=== PATIENT | female | born 1995 | race Caucasian/White ===

== ENCOUNTER → 2017-09-28 | Outpatient (REF) | payer OTHER ==
[2017-09-28 15:02] LABS: ALBUMIN 2.9 GM/DL (3.2-5.2); ALBUMIN/GLOBULIN RATIO 0.83 (1.00-1.93); ALKALINE PHOSPHATASE 61 U/L (45-117); ALT/SGPT 21 U/L (12-78); AST/SGOT 22 U/L (7-37); BILIRUBIN,DIRECT < 0.1 MG/DL (0.0-0.2); BILIRUBIN,TOTAL 0.2 MG/DL (0.2-1.0); TOTAL PROTEIN 6.4 GM/DL (6.4-8.2)
[2017-10-02 00:09] LABS: HEPATITIS A IgG TOTAL Negative (Negative); HEPATITIS C QUANTITATION HCV Not Detected IU/mL (.)
== END ==
LOC: M SFHCPLAZ 09:44
DX: R76.8 Other specified abnormal immunological findings in serum (principal)

== ENCOUNTER 2018-01-10 15:13 | Inpatient (IN) | payer OTHER ==
[2018-01-10 17:04] LABS: HEMATOCRIT 37.3 % (36.0-47.0); HEMOGLOBIN 12.9 g/dl (12.0-15.5); MEAN CORPUSCULAR HEMOGLOBIN 30.9 pg (27.0-33.0); MEAN CORPUSCULAR HGB CONC 34.6 g/dl (32.0-36.5); MEAN CORPUSCULAR VOLUME 89.4 fl (80.0-96.0); PLATELET COUNT, AUTOMATED 260 10^3/uL (150-450); RED BLOOD COUNT 4.17 10^6/uL (4.00-5.40); RED CELL DISTRIBUTION WIDTH 12.3 % (11.5-14.5); WHITE BLOOD COUNT 10.4 10^3/uL (4.0-10.0)
[2018-01-10] MEDS: LACTATED RINGER'S 1000 ML IV (17:19)
[2018-01-10] MEDS: PENICILLIN G POTASSIUM IV 5 MU in D5W MINI-BAG PLUS 100 ML IV (17:19)
[2018-01-10] MEDS ORDERED: miSOPROStol 50 MCG 1/2 TAB (S0191) PO (17:30)
[2018-01-10] MEDS: LR 1,000 ML IV (18:19)
[2018-01-10] MEDS: OXYTOCIN DRIP 30 UNITS in APPROPRIATE DILUENT 1 EA IV (18:42)
[2018-01-10] MEDS ORDERED: PENICILLIN G POTASSIUM IV 2.5 MU in APPROPRIATE DILUENT 1 EA IV (20:15)
[2018-01-10] MEDS: PENICILLIN G POTASSIUM IV 2.5 MU in APPROPRIATE DILUENT 1 EA IV (22:03)
[2018-01-11] MEDS: LR 1,000 ML IV (00:30)
[2018-01-11] MEDS: PENICILLIN G POTASSIUM IV 2.5 MU in APPROPRIATE DILUENT 1 EA IV ×2 (02:05→05:56)
[2018-01-11] MEDS: BUTORPHANOL 2 MG/ML INJ (J0595) IV (02:35)
[2018-01-11] MEDS: FAMOTIDINE 20 MG TAB PO ×2 (02:35→20:08)
[2018-01-11] MEDS: OXYTOCIN DRIP 30 UNITS in APPROPRIATE DILUENT 1 EA IV (07:16)
[2018-01-11] MEDS ORDERED: DIBUCAINE 1% OINTMENT 30GM TOP (07:30)
[2018-01-11] MEDS ORDERED: RHOGAM 300 MCG (1500 IU) INJ (J2790) IM (07:30)
[2018-01-11] MEDS ORDERED: DOCUSATE SODIUM 100 MG CAP PO (07:30)
[2018-01-11] MEDS ORDERED: MEASLES,MUMPS,RUBELLA VACCINE INJ (MMR-II) (90707) SC (07:30)
[2018-01-11] MEDS: IBUPROFEN 800 MG TAB PO ×2 (08:33→17:28)
[2018-01-11] MEDS: PRENATAL VITAMINS CHEWABLE TABLET PO (08:33)
[2018-01-11] MEDS: ACETAMINOPHEN 500 MG TAB PO ×2 (09:29→14:03)
[2018-01-11] MEDS ORDERED: LIDOCAINE 1% MDV INJ 50 ML VIAL As Ordered (10:22)
[2018-01-11 10:55] LABS: HBSAG L&D NEGATIVE (NEGATIVE)
[2018-01-11] MEDS ORDERED: PILL CRUSHER/CUTTER 1 EACH XX (16:45)
[2018-01-11] MEDS: CALCIUM CARBONATE 500 MG CHEW U/D PO (16:52)
[2018-01-11] MEDS: LIDOCAINE 1% MDV INJ 50 ML VIAL SC (19:10)
[2018-01-12] MEDS: IBUPROFEN 800 MG TAB PO ×2 (00:37→20:24)
[2018-01-12] MEDS: PRENATAL VITAMINS CHEWABLE TABLET PO (08:09)
[2018-01-12] MEDS: FAMOTIDINE 20 MG TAB PO ×2 (08:09→20:24)
[2018-01-12] MEDS: SUCRALFATE 1 GM TAB PO (21:00)
[2018-01-13] MEDS: SUCRALFATE 1 GM TAB PO (09:23)
[2018-01-13] MEDS: PRENATAL VITAMINS CHEWABLE TABLET PO (09:23)
[2018-01-13] MEDS: FAMOTIDINE 20 MG TAB PO (09:24)
[2018-01-13] MEDS: INFLUENZA QUADRIVALENT PF VACCINE 0.5ML SYRINGE (90686) IM (10:55)
== END 2018-01-13 11:10 | disposition home or self-care (01) | DRG 774 ==
LOC: M LDI 15:13 → M OBS 01-11 09:08
PROVIDERS: Obstetrics & Gynecology
PROC: 10907ZC Drainage of Amniotic Fluid, Therapeutic from Products of Conception, Via Natural or Artificial Opening (ICD-10-PCS; 2018-01-10)
PROC: 3E033VJ Introduction of Other Hormone into Peripheral Vein, Percutaneous Approach (ICD-10-PCS; 2018-01-10)
PROC: 10E0XZZ Delivery of Products of Conception, External Approach (ICD-10-PCS; principal; 2018-01-11)
PROC: 0HQ9XZZ Repair Perineum Skin, External Approach (ICD-10-PCS; 2018-01-11)
DX: O48.0 Post-term pregnancy (principal); O98.42 Viral hepatitis complicating childbirth; Z37.0 Single live birth; Z3A.41 41 weeks gestation of pregnancy; B19.20 Unspecified viral hepatitis C without hepatic coma; K21.9 Gastro-esophageal reflux disease without esophagitis; O99.62 Diseases of the digestive system complicating childbirth; O99.820 Streptococcus B carrier state complicating pregnancy; O70.0 First degree perineal laceration during delivery; O69.82X0 Labor and delivery complicated by other cord entanglement, without compression, not applicable or unspecified